=== PATIENT | male | born 1955 | race Caucasian/White ===

== ENCOUNTER 2022-04-06 13:41 | Outpatient (RCR) | payer OTHER | END 2022-04-18 | disposition home or self-care (01) | LOC: PT | DX: S72.491D Other fracture of lower end of right femur, subsequent encounter for closed fracture with routine healing (principal); Z98.890 Other specified postprocedural states; X58.XXXD Exposure to other specified factors, subsequent encounter ==

== ENCOUNTER 2022-05-17 10:45 | Outpatient (RCR) | payer MEDICARE, BC | END 2022-06-16 | disposition home or self-care (01) | LOC: PT | DX: S72.92XD Unspecified fracture of left femur, subsequent encounter for closed fracture with routine healing (principal); X58.XXXD Exposure to other specified factors, subsequent encounter ==

== ENCOUNTER → 2024-06-27 | Outpatient (CLI) | payer MEDICARE, BC | LOC: RAD 09:07 | DX: M47.816 Spondylosis without myelopathy or radiculopathy, lumbar region (principal); M48.061 Spinal stenosis, lumbar region without neurogenic claudication; M50.33 Other cervical disc degeneration, cervicothoracic region; M47.815 Spondylosis without myelopathy or radiculopathy, thoracolumbar region; M51.370 Other intervertebral disc degeneration, lumbosacral region with discogenic back pain only; M25.78 Osteophyte, vertebrae; M24.28 Disorder of ligament, vertebrae; M48.07 Spinal stenosis, lumbosacral region; M25.561 Pain in right knee; Z98.890 Other specified postprocedural states; Z87.828 Personal history of other (healed) physical injury and trauma ==